=== PATIENT | female | born 1995 | race Caucasian/White ===

== ENCOUNTER 2025-10-27 09:39 | Emergency (ER) | payer MEDICAID ==
[~2025-10-27] VITALS: Ht 172.7 cm; Wt 65.9 kg
[2025-10-27 09:47] VITALS: BP 148/94; PULSE 100; RESP 18; TEMP 98.7; O2SAT 100
--- NOTE | 2025-10-27 10:08 | Physician Documentation ---
History of Present Illness ~ General Chief Complaint: See Chief Complaint Stated Complaint: SEE CHIEF Time Seen by MD: 09:51 Source: patient Mode of Arrival: POV Exam Limitations: no limitations History of Present Illness Initial Comments 29-year-old concerned after putting up [employer] decorations and doing a lot of yd work and housework yesterday that she has her 4th and 5th finger intermittently numb to the right hand which is her dominant hand as well as concerns that she left a tampon it couple of days ago she is currently on her menstrual cycle. She is not sure if it fell out while using the restroom or if she left it in Medication Reconciliation Allergies: Coded Allergies: No Known Allergies (Unverified , 10/27/25) Past Medical History Past Medical History: No Pertinent History Past Surgical History: noncontributory Lives with: Spouse Lives In: Home Occupation: employed Review of Systems All Other Systems at this time: Reviewed and Negative Female Genitalia: Reports: see HPI Musculoskeletal: Reports: see HPI Physical Exam Physical Exam Vital Signs: RN Vital Signs have been reviewed: Yes, Temperature: 98.7, Source: Temporal, Heart Rate: 100, Respiratory Rate: 18, BP: 148/94, Pulse Oximetry: 100, Weight: 65.900 Oxygen Flow Rate: 0 Physical Exam General: Alert, no apparent distress. HEENT: moist mucous membranes. Neck: Full range of motion. Respiratory: No respiratory distress speaking in full sentences Chest: No accessory muscle use. Cardiovascular: Appears well perfused Female: No retained foreign body Neurologic: Oriented x4. Psychiatric: Normal mood and affect. Skin: Normal color, warm and dry. No edema, no ecchymosis. Progress Results/Orders Results/Orders Vital Signs 10/27/25 09:47 Temp 98.7 Pulse 100 Resp 18 B/P (MAP) 148/94 Pulse Ox 100 O2 Flow Rate 0 Medical Decision Making Additional information obtaine: N/A Findings No retained foreign body, ulnar nerve due to overuse potentially from the housework. Has resolved since she has been here. Follow up with primary care Differential Diagnosis Vaginal retained foreign body tampon Departure Time of Disposition: 11:16 Disposition: 01 HOME / SELF CARE / HOMELESS Impression: Primary Impression: Ulnar nerve abnormality Condition: Stable Discharge Instructions: Neuropathic Pain Additional Instructions: Tylenol or ibuprofen as needed for some of the nerve pain to the fingers. Follow up with primary care as needed Referrals: NO PRIMARY CARE PROVIDER (PCP) Education Educated: Patient Educated regarding: diagnosis, treatment, need for follow up Signature Scribe Signature: No scribe Attestation: The note accurately reflects work and decisions made by me.Melissa Villafuerte - ACCOUNTANT HELPER 10/27/25 11:18 MELISSA VILLAFUERTE NP Oct 27, 2025 10:08
== END 2025-10-27 11:25 | disposition home or self-care (01) ==
LOC: ER 09:41
DX: Q07.9 Congenital malformation of nervous system, unspecified (principal)
CPT/HCPCS: 99282; 99283; 99284